=== PATIENT | female | born 1950 | race African-American/Black ===

== ENCOUNTER 2018-07-16 16:34 | Inpatient (IN) | payer MEDICARE ==
[~2018-07-16] VITALS: Ht 170.2 cm; Wt 101.2 kg
[~2018-07-16 16:34] MED LIST: ETOMIDATE 2MG/ML 10ML VIAL IV ONE
[2018-07-16] MEDS ORDERED: AMIODARONE HCL 50MG/ML 9ML VIAL IV ONE (17:15)
[2018-07-16] MEDS ORDERED: AMIODARONE HCL 900 MG in DEXT 5% WATER 482 ML IV NR (17:15)
[2018-07-16] MEDS ORDERED: AMIODARONE HCL 150 MG in DEXT 5% WATER 100 ML IV ONE (17:15)
[2018-07-16] MEDS ORDERED: SODIUM CHLORIDE 0.9% 1,000 ML IV ONE (17:19)
[2018-07-16] MEDS ORDERED: MIDAZOLAM HCL 2 MG/2 ML VIAL ONE (17:19)
[2018-07-16] MEDS ORDERED: ADENOSINE 3 MG/ML 2ML VIAL IV ONE ×2 (17:30)
[2018-07-16] MEDS ORDERED: DIGOXIN 500MCG/2ML AMP IV ONE (17:30)
[2018-07-16] MEDS ORDERED: DIGOXIN 500MCG/2ML AMP IV NR (17:30)
[2018-07-16 17:32] LABS: BG BASE EXCESS -6.7 mmol/L (-2.0-2.0); BG CARBOXYHEMOGLOBIN 0.3 % (0.5-1.5); BG DEOXYHEMOGLOBIN 0.4 % (0.0-5.0); BG FRACTION INSPIRED OXYGEN 100; BG HCO3 ACT 16.1 mmol/L (22.0-26.0); BG METHEMOGLOBIN 0.4 % (0.0-1.5); BG OXYGEN SATURATION 99.6 % (92.0-98.5); BG OXYHEMOGLOBIN 98.9 % (94.0-97.0); BG PCO2 24.6 mmHg (35.0-45.0); BG PH 7.433 (7.350-7.450); BG PO2 589.3 mmHg (75.0-100.0); BG SAMPLE SITE RIGHT BRACHIAL; BG TOTAL HEMOGLOBIN 11.2 g/dL (12.0-18.0); BG VENT MODE MASK - NRB
[2018-07-16 17:37] LABS: HEMATOCRIT. 35.9 % (36.0-48.0); HEMOGLOBIN. 11.8 g/dL (12.0-16.0); MEAN CORPUSCULAR VOLUME 82.4 fL (81.0-99.0); MEAN PLATELET VOLUME 12.7 fl (7.4-10.4); PLATELET 150 x1000/uL (130-400); RED BLOOD CELL COUNT 4.36 mill/uL (4.2-5.4); RED CELL DISTRIBUTION WIDTH 15.1 % (11.6-14.6)
[2018-07-16 17:45] LABS: CHLORIDE 88 mEq/L (98-107)
[2018-07-16 17:48] LABS: PARTIAL THROMBOPLASTIN TIME 33.9 sec (23.4-31.0); PROTHROMBIN TIME 10.1 sec (9.1-11.1)
[2018-07-16 18:09] LABS: PLATELET ESTIMATE NORMAL
[2018-07-16 21:44] VITALS: BP 120/96
[2018-07-16 22:00] VITALS: BP 120/96
[2018-07-16] MEDS ORDERED: ACETAMINOPHEN 325MG TABLET PO PRN (22:00)
[2018-07-16] MEDS ORDERED: ONDANSETRON HCL 4MG/2ML INJ IV PRN (22:00)
[2018-07-16] MEDS ORDERED: MAGNESIUM/ALUMINUM HYDROXIDE/SIMETHICONE 30ML UDC PO PRN (22:00)
[2018-07-16 22:01] VITALS: BP 124/62
[2018-07-16 22:30] VITALS: BP 102/59
[2018-07-16] MEDS: AMIODARONE HCL 900 MG in DEXT 5% WATER 482 ML IV PRN (22:30)
[2018-07-16] MEDS: SODIUM CHLORIDE 0.9% 1,000 ML IV SCH (23:00)
[2018-07-16 23:01] VITALS: BP 116/64
[2018-07-16 23:31] VITALS: BP 111/56
[2018-07-17] VITALS (44 sets, daily range): BP systolic 89–134; BP diastolic 43–81
[2018-07-17 05:28] LABS: CHLORIDE 103 mEq/L (98-107)
[2018-07-17 05:34] LABS: PHOSPHORUS 4.2 mg/dL (2.5-4.9)
[2018-07-17] MEDS ORDERED: DIGOXIN 500MCG/2ML AMP IV SCH (07:00)
[2018-07-17] MEDS ORDERED: MAGNESIUM 1 G PREMIX 100 ML IV SCH (07:30)
[2018-07-17] MEDS ORDERED: CEFTRIAXONE 1 G PREMIX 50 ML IV SCH (07:30)
[2018-07-17] MEDS ORDERED: IPRATROPIUM BROMIDE (0.02%) 0.5MG/2.5ML NEB HHN PRN (08:45)
[2018-07-17] MEDS: SODIUM CHLORIDE 0.9% 1,000 ML IV SCH ×3 (09:00→19:00)
[2018-07-17] MEDS ORDERED: KCL 20MEQ/100ML PREMIX 100 ML IV SCH (09:00)
[2018-07-17] MEDS ORDERED: PIPERACILLIN/TAZOBACTAM 2.25 G in DEXTROSE 5% WATER 50 ML IV SCH ×2 (09:00→10:00)
[2018-07-17] MEDS ORDERED: VANCOMYCIN 1,250 MG in DEXT 5% WATER 250 ML IV SCH (10:00)
[2018-07-17] MEDS: FAMOTIDINE 20MG/2ML VIAL IV SCH ×2 (10:04→10:14)
[2018-07-17] MEDS: ENOXAPARIN 80MG/0.8ML SYR SUBCUT SCH (10:06)
[2018-07-17 11:00] LABS: T4 FREE 1.12 ng/dL (0.76-1.46)
[2018-07-17 11:33] LABS: HEMATOCRIT. 30.9 % (36.0-48.0); HEMOGLOBIN. 10.1 g/dL (12.0-16.0); MEAN CORPUSCULAR HEMOGLOBIN 27.5 pg (28.0-32.0); MEAN CORPUSCULAR VOLUME 84.3 fL (81.0-99.0); MEAN PLATELET VOLUME 11.6 fl (7.4-10.4); PLATELET 107 x1000/uL (130-400); RED BLOOD CELL COUNT 3.67 mill/uL (4.2-5.4); RED CELL DISTRIBUTION WIDTH 15.6 % (11.6-14.6)
[2018-07-17 13:10] LABS: ATYPICAL LYMPHOCYTES 1; NUCLEATED RED BLOOD CELLS 3 /100 WBC
[2018-07-17 13:11] LABS: PLATELET ESTIMATE SLIGHTLY DECREASED
[2018-07-17] MEDS: AMIODARONE HCL 900 MG in DEXT 5% WATER 482 ML IV PRN (13:46)
[2018-07-17] MEDS ORDERED: METRONIDAZOLE 500MG TABLET PO SCH (14:00)
[2018-07-17] MEDS: METRONIDAZOLE 500MG TABLET PO SCH (17:09)
[2018-07-18] VITALS (78 sets, daily range): BP systolic 79–136; BP diastolic 36–105
[2018-07-18] MEDS: SODIUM CHLORIDE 0.9% 1,000 ML IV SCH ×2 (05:00→14:27)
[2018-07-18] MEDS: METRONIDAZOLE 500MG TABLET PO SCH ×2 (05:44→17:14)
[2018-07-18 07:23] LABS: HEMATOCRIT. 26.9 % (36.0-48.0); HEMOGLOBIN. 8.9 g/dL (12.0-16.0); MEAN CORPUSCULAR HEMOGLOBIN 27.4 pg (28.0-32.0); MEAN CORPUSCULAR VOLUME 82.7 fL (81.0-99.0); MEAN PLATELET VOLUME 11.7 fl (7.4-10.4); PLATELET 127 x1000/uL (130-400); RED BLOOD CELL COUNT 3.25 mill/uL (4.2-5.4); RED CELL DISTRIBUTION WIDTH 15.5 % (11.6-14.6)
[2018-07-18 07:27] LABS: CHLORIDE 109 mEq/L (98-107)
[2018-07-18] MEDS ORDERED: DIGOXIN 500MCG/2ML AMP IV NR (07:30)
[2018-07-18 07:33] LABS: PHOSPHORUS 2.6 mg/dL (2.5-4.9)
[2018-07-18 08:49] LABS: PLATELET ESTIMATE SLIGHTLY DECREASED
[2018-07-18] MEDS ORDERED: POTASSIUM CHLORIDE 20MEQ TABLET SR PO SCH (09:00)
[2018-07-18] MEDS ORDERED: ALBUMIN HUMAN 25GM/100ML (25%) IV SCH (09:30)
[2018-07-18] MEDS: FAMOTIDINE 20MG/2ML VIAL IV SCH (09:39)
[2018-07-18] MEDS: ENOXAPARIN 80MG/0.8ML SYR SUBCUT SCH (09:39)
[2018-07-18] MEDS: AMIODARONE HCL 200 MG TABLET PO SCH (14:43)
[2018-07-19] VITALS (55 sets, daily range): BP systolic 91–147; BP diastolic 40–105
[2018-07-19] MEDS: SODIUM CHLORIDE 0.9% 1,000 ML IV SCH ×2 (00:34→08:31)
[2018-07-19 05:45] LABS: HEMATOCRIT. 25.4 % (36.0-48.0); HEMOGLOBIN. 8.3 g/dL (12.0-16.0); MEAN CORPUSCULAR HEMOGLOBIN 27.1 pg (28.0-32.0); MEAN CORPUSCULAR VOLUME 83.1 fL (81.0-99.0); MEAN PLATELET VOLUME 11.4 fl (7.4-10.4); PLATELET 141 x1000/uL (130-400); RED BLOOD CELL COUNT 3.06 mill/uL (4.2-5.4); RED CELL DISTRIBUTION WIDTH 15.4 % (11.6-14.6)
[2018-07-19 06:14] LABS: PHOSPHORUS 2.5 mg/dL (2.5-4.9)
[2018-07-19] MEDS: METRONIDAZOLE 500MG TABLET PO SCH ×2 (06:14→18:22)
[2018-07-19 06:53] LABS: PLATELET ESTIMATE NORMAL
[2018-07-19] MEDS: AMIODARONE HCL 200 MG TABLET PO SCH (08:30)
[2018-07-19] MEDS: FAMOTIDINE 20MG/2ML VIAL IV SCH (08:30)
[2018-07-19] MEDS: ENOXAPARIN 80MG/0.8ML SYR SUBCUT SCH (08:30)
[2018-07-19] MEDS ORDERED: DIGOXIN 500MCG/2ML AMP IV ONE (09:45)
[2018-07-19] MEDS: LACTOBACILLUS GG CAPSULE PO SCH (12:44)
[2018-07-20] VITALS (12 sets, daily range): BP systolic 116–146; BP diastolic 64–99
[2018-07-20] MEDS: SODIUM CHLORIDE 0.9% 1,000 ML IV SCH ×3 (00:35→18:37)
[2018-07-20 07:46] LABS: HEMATOCRIT. 28.6 % (36.0-48.0); HEMOGLOBIN. 9.2 g/dL (12.0-16.0); MEAN CORPUSCULAR HEMOGLOBIN 27.4 pg (28.0-32.0); MEAN CORPUSCULAR VOLUME 85.5 fL (81.0-99.0); MEAN PLATELET VOLUME 11.7 fl (7.4-10.4); PLATELET 161 x1000/uL (130-400); RED BLOOD CELL COUNT 3.35 mill/uL (4.2-5.4); RED CELL DISTRIBUTION WIDTH 16.1 % (11.6-14.6)
[2018-07-20] MEDS: LACTOBACILLUS GG CAPSULE PO SCH (09:08)
[2018-07-20] MEDS: METRONIDAZOLE 500MG TABLET PO SCH ×2 (09:08→17:18)
[2018-07-20] MEDS: AMIODARONE HCL 200 MG TABLET PO SCH (09:08)
[2018-07-20] MEDS: ENOXAPARIN 80MG/0.8ML SYR SUBCUT SCH (09:09)
[2018-07-20] MEDS: CEFTRIAXONE 1 G PREMIX 50 ML IV SCH (09:09)
[2018-07-20] MEDS: FAMOTIDINE 20MG/2ML VIAL IV SCH (09:09)
[2018-07-20 11:06] LABS: PLATELET ESTIMATE NORMAL
[2018-07-21] VITALS (12 sets, daily range): BP systolic 139–159; BP diastolic 35–92
[2018-07-21 06:44] LABS: HEMATOCRIT. 27.4 % (36.0-48.0); HEMOGLOBIN. 8.9 g/dL (12.0-16.0); MEAN CORPUSCULAR HEMOGLOBIN 27.1 pg (28.0-32.0); MEAN CORPUSCULAR VOLUME 83.9 fL (81.0-99.0); MEAN PLATELET VOLUME 10.6 fl (7.4-10.4); PLATELET 173 x1000/uL (130-400); RED BLOOD CELL COUNT 3.27 mill/uL (4.2-5.4); RED CELL DISTRIBUTION WIDTH 15.5 % (11.6-14.6)
[2018-07-21] MEDS: METRONIDAZOLE 500MG TABLET PO SCH ×2 (06:51→17:26)
[2018-07-21 08:31] LABS: NUCLEATED RED BLOOD CELLS 1 /100 WBC
[2018-07-21 08:33] LABS: PLATELET ESTIMATE NORMAL
[2018-07-21] MEDS: LACTOBACILLUS GG CAPSULE PO SCH (09:01)
[2018-07-21] MEDS: FAMOTIDINE 20MG/2ML VIAL IV SCH (09:01)
[2018-07-21] MEDS: AMIODARONE HCL 200 MG TABLET PO SCH (09:01)
[2018-07-21] MEDS: ENOXAPARIN 80MG/0.8ML SYR SUBCUT SCH ×2 (09:02→21:10)
[2018-07-21] MEDS: CEFTRIAXONE 1 G PREMIX 50 ML IV SCH (09:02)
[2018-07-21] MEDS: SODIUM CHLORIDE 0.9% 1,000 ML IV SCH (12:27)
[2018-07-21] MEDS: SODIUM CHLORIDE 0.45% 1,000 ML IV SCH (13:35)
[2018-07-22] VITALS (13 sets, daily range): BP systolic 128–164; BP diastolic 65–109
[2018-07-22] MEDS: SODIUM CHLORIDE 0.45% 1,000 ML IV SCH (06:11)
[2018-07-22] MEDS: METRONIDAZOLE 500MG TABLET PO SCH ×2 (06:12→18:14)
[2018-07-22 06:47] LABS: HEMATOCRIT. 25.8 % (36.0-48.0); HEMOGLOBIN. 8.3 g/dL (12.0-16.0); MEAN CORPUSCULAR HEMOGLOBIN 26.9 pg (28.0-32.0); MEAN CORPUSCULAR VOLUME 83.7 fL (81.0-99.0); MEAN PLATELET VOLUME 10.2 fl (7.4-10.4); PLATELET 211 x1000/uL (130-400); RED BLOOD CELL COUNT 3.08 mill/uL (4.2-5.4); RED CELL DISTRIBUTION WIDTH 15.7 % (11.6-14.6)
[2018-07-22] MEDS: AMIODARONE HCL 200 MG TABLET PO SCH (08:15)
[2018-07-22] MEDS: LACTOBACILLUS GG CAPSULE PO SCH (08:15)
[2018-07-22] MEDS: FAMOTIDINE 20MG/2ML VIAL IV SCH (08:16)
[2018-07-22] MEDS: CEFTRIAXONE 1 G PREMIX 50 ML IV SCH (08:16)
[2018-07-22] MEDS: ENOXAPARIN 80MG/0.8ML SYR SUBCUT SCH ×2 (08:17→21:21)
[2018-07-22 17:26] LABS: PLATELET ESTIMATE NORMAL
[2018-07-23] VITALS (10 sets, daily range): BP systolic 132–182; BP diastolic 47–99
[2018-07-23] MEDS: METRONIDAZOLE 500MG TABLET PO SCH ×2 (06:17→18:12)
[2018-07-23 06:45] LABS: HEMATOCRIT. 25.1 % (36.0-48.0); HEMOGLOBIN. 8.1 g/dL (12.0-16.0); MEAN CORPUSCULAR HEMOGLOBIN 27.1 pg (28.0-32.0); MEAN CORPUSCULAR VOLUME 83.9 fL (81.0-99.0); MEAN PLATELET VOLUME 9.9 fl (7.4-10.4); PLATELET 212 x1000/uL (130-400); RED BLOOD CELL COUNT 2.99 mill/uL (4.2-5.4); RED CELL DISTRIBUTION WIDTH 15.8 % (11.6-14.6)
[2018-07-23 06:54] LABS: PHOSPHORUS 4.1 mg/dL (2.5-4.9)
[2018-07-23] MEDS ORDERED: DEXTROSE 5% WATER 1,000 ML IV SCH (08:45)
[2018-07-23] MEDS ORDERED: AMLODIPINE 5MG TABLET PO SCH (09:00)
[2018-07-23] MEDS: ENOXAPARIN 80MG/0.8ML SYR SUBCUT SCH (09:00)
[2018-07-23] MEDS: FAMOTIDINE 20MG/2ML VIAL IV SCH (09:12)
[2018-07-23] MEDS: AMIODARONE HCL 200 MG TABLET PO SCH (09:12)
[2018-07-23] MEDS: LACTOBACILLUS GG CAPSULE PO SCH (09:13)
[2018-07-23] MEDS ORDERED: MAGNESIUM 2 G PREMIX 50 ML IV NR (10:00)
[2018-07-23] MEDS: CEFTRIAXONE 1 G PREMIX 50 ML IV SCH (12:00)
[2018-07-23 15:29] LABS: NUCLEATED RED BLOOD CELLS 1 /100 WBC; PLATELET ESTIMATE NORMAL
[2018-07-23] MEDS ORDERED: DIGOXIN 500MCG/2ML AMP IV NR (15:45)
[2018-07-23] MEDS: DILTIAZEM HCL 90MG TABLET PO SCH (18:12)
[2018-07-23] MEDS: APIXABAN 5 MG TABLET PO SCH (18:12)
[2018-07-23] MEDS ORDERED: FAMOTIDINE 20MG TABLET PO SCH (21:00)
[2018-07-23] MEDS ORDERED: DILTIAZEM HCL 60MG TABLET PO SCH (22:00)
[2018-07-23] MEDS ORDERED: DIPHENHYDRAMINE 25MG CAPSULE PO PRN (22:00)
[2018-07-23] MEDS ORDERED: DIPHENHYDRAMINE 50MG CAPSULE PO PRN (22:30)
[2018-07-24] VITALS (7 sets, daily range): BP systolic 127–155; BP diastolic 60–95
[2018-07-24] MEDS: DILTIAZEM HCL 90MG TABLET PO SCH ×3 (00:21→13:42)
[2018-07-24] MEDS: METRONIDAZOLE 500MG TABLET PO SCH (06:24)
[2018-07-24] MEDS: APIXABAN 5 MG TABLET PO SCH (06:24)
[2018-07-24 06:45] LABS: BASOPHILS % 0.1 % (0.0-2.0); HEMATOCRIT. 24.6 % (36.0-48.0); LYMPHOCYTES % 11.1 % (20.0-50.0); MEAN CORPUSCULAR HEMOGLOBIN 27.1 pg (28.0-32.0); MEAN CORPUSCULAR VOLUME 83.6 fL (81.0-99.0); MEAN PLATELET VOLUME 9.7 fl (7.4-10.4); MONOCYTES % 4.6 % (2.0-8.0); NEUTROPHILS % 84.2 % (40.0-76.0); PLATELET 220 x1000/uL (130-400); RED BLOOD CELL COUNT 2.94 mill/uL (4.2-5.4); RED CELL DISTRIBUTION WIDTH 15.7 % (11.6-14.6)
[2018-07-24 09:38] LABS: PHOSPHORUS 3.9 mg/dL (2.5-4.9)
[2018-07-24] MEDS: AMIODARONE HCL 200 MG TABLET PO SCH (09:58)
[2018-07-24] MEDS: LACTOBACILLUS GG CAPSULE PO SCH (09:58)
[2018-07-24] MEDS ORDERED: SIMV10TA6 PO (22:30)
[2018-07-24] MEDS ORDERED: LISI-604 PO (22:30)
[2018-07-24] MEDS ORDERED: METO-539 PO (22:30)
[2018-07-24] MEDS ORDERED: HYDR-4135 PO (22:30)
[2018-07-24] MEDS ORDERED: HYDR25TA PO (22:30)
== END 2018-07-24 17:30 | DRG 871 ==
LOC: ER 16:34 → EDBEDREQ 17:08 → MICUSO 18:22 → EDBEDREQ 18:26 → ENRESERV 19:31 → 3WST 07-19 17:22
PROVIDERS: ADMIT Internal Medicine; ATTEND Internal Medicine
PROC: 5A2204Z Restoration of Cardiac Rhythm, Single (ICD-10-PCS; principal; 2018-07-17)
DX: A41.9 Sepsis, unspecified organism (principal); E43 Unspecified severe protein-calorie malnutrition; R65.21 Severe sepsis with septic shock; J96.00 Acute respiratory failure, unspecified whether with hypoxia or hypercapnia; D61.810 Antineoplastic chemotherapy induced pancytopenia; N17.9 Acute kidney failure, unspecified; D68.59 Other primary thrombophilia; E87.1 Hypo-osmolality and hyponatremia; E87.4 Mixed disorder of acid-base balance; G62.81 Critical illness polyneuropathy; I47.1 Supraventricular tachycardia; I48.1 Persistent atrial fibrillation; J98.11 Atelectasis; N39.0 Urinary tract infection, site not specified; N12 Tubulo-interstitial nephritis, not specified as acute or chronic; E87.0 Hyperosmolality and hypernatremia; N18.9 Chronic kidney disease, unspecified; E05.90 Thyrotoxicosis, unspecified without thyrotoxic crisis or storm; E11.22 Type 2 diabetes mellitus with diabetic chronic kidney disease; E66.9 Obesity, unspecified; E78.00 Pure hypercholesterolemia, unspecified; E78.5 Hyperlipidemia, unspecified; E86.0 Dehydration; E86.1 Hypovolemia; I12.9 Hypertensive chronic kidney disease with stage 1 through stage 4 chronic kidney disease, or unspecified chronic kidney disease; E87.6 Hypokalemia; I48.0 Paroxysmal atrial fibrillation; K57.90 Diverticulosis of intestine, part unspecified, without perforation or abscess without bleeding; C50.911 Malignant neoplasm of unspecified site of right female breast; T45.1X5A Adverse effect of antineoplastic and immunosuppressive drugs, initial encounter; L89.159 Pressure ulcer of sacral region, unspecified stage; R26.9 Unspecified abnormalities of gait and mobility; K80.20 Calculus of gallbladder without cholecystitis without obstruction; R74.0 Nonspecific elevation of levels of transaminase and lactic acid dehydrogenase [LDH]; B96.20 Unspecified Escherichia coli [E. coli] as the cause of diseases classified elsewhere; M10.9 Gout, unspecified; Z82.49 Family history of ischemic heart disease and other diseases of the circulatory system; Z85.3 Personal history of malignant neoplasm of breast; Z90.11 Acquired absence of right breast and nipple; Z88.1 Allergy status to other antibiotic agents; Z68.34 Body mass index [BMI] 34.0-34.9, adult; Y92.89 Other specified places as the place of occurrence of the external cause
CPT/HCPCS: 36415; 36600; 71045; 74176; 78580; 80048; 80162; 82375; 82805; 83605; 83735; 83880; 84100; 84134; 84145; 84439; 84443; 84484; 84550; 86850; 86900; 87015; 87045; 87077; 87186; 87427; 87449; 87493; 87804; 93005; 93306; 96365; 97116; 97163; 97166; 97530; 99152; 99291; A6261; J0153; J0282; J0696; J1160; J1650; J2250; J2405; J2543; J3370; J3475; J3480; J3490; J7030; J7060; J7070; P9047; Q0163

== ENCOUNTER 2018-07-24 17:30 | Inpatient (IN) | payer MEDICARE ==
[~2018-07-24] VITALS: Ht 170.2 cm; Wt 101.2 kg
[2018-07-24] MEDS ORDERED: MAGNESIUM/ALUMINUM HYDROXIDE/SIMETHICONE 30ML UDC PO PRN (18:45)
[2018-07-24] MEDS ORDERED: DIPHENHYDRAMINE 50MG CAPSULE PO PRN (18:45)
[2018-07-24] MEDS ORDERED: IPRATROPIUM BROMIDE (0.02%) 0.5MG/2.5ML NEB HHN PRN (18:45)
[2018-07-24] MEDS ORDERED: ACETAMINOPHEN 650MG/20.3ML UDC PO PRN (18:45)
[2018-07-24] MEDS ORDERED: ONDANSETRON HCL 4MG TABLET PO PRN (18:45)
[2018-07-24 20:00] VITALS: BP 139/83
[2018-07-24] MEDS: FAMOTIDINE 20MG TABLET PO SCH (21:04)
[2018-07-24] MEDS: APIXABAN 5 MG TABLET PO SCH (21:04)
[2018-07-24] MEDS ORDERED: HYDR-4135 PO (22:30)
[2018-07-24] MEDS ORDERED: SIMV10TA6 PO (22:30)
[2018-07-24] MEDS ORDERED: HYDR25TA PO (22:30)
[2018-07-24] MEDS ORDERED: METO-539 PO (22:30)
[2018-07-24] MEDS ORDERED: LISI-604 PO (22:30)
[2018-07-25] MEDS: DILTIAZEM HCL 90MG TABLET PO SCH ×2 (00:42→06:28)
[2018-07-25 06:53] LABS: CHLORIDE 111 mEq/L (98-107)
[2018-07-25 07:06] LABS: HEMATOCRIT. 24.4 % (36.0-48.0); HEMOGLOBIN. 8.2 g/dL (12.0-16.0); MEAN CORPUSCULAR VOLUME 83.8 fL (81.0-99.0); MEAN PLATELET VOLUME 9.4 fl (7.4-10.4); PLATELET 228 x1000/uL (130-400); RED BLOOD CELL COUNT 2.92 mill/uL (4.2-5.4); RED CELL DISTRIBUTION WIDTH 15.7 % (11.6-14.6)
[2018-07-25 08:00] VITALS: BP 137/77
[2018-07-25] MEDS: APIXABAN 5 MG TABLET PO SCH ×2 (08:25→21:11)
[2018-07-25] MEDS: AMIODARONE HCL 200 MG TABLET PO SCH (08:25)
[2018-07-25] MEDS: LACTOBACILLUS GG CAPSULE PO SCH (08:25)
[2018-07-25] MEDS ORDERED: POTASSIUM CHLORIDE 20MEQ TABLET SR PO NR (09:30)
[2018-07-25] MEDS: DILTIAZEM HCL 180MG CAPSULE CD 24HR PO SCH (10:18)
[2018-07-25 10:59] LABS: NUCLEATED RED BLOOD CELLS 2 /100 WBC; PLATELET ESTIMATE NORMAL
[2018-07-25 20:12] VITALS: BP 154/75
[2018-07-25] MEDS: FAMOTIDINE 20MG TABLET PO SCH (21:11)
[2018-07-25 23:20] LABS: CLARITY URINE CLEAR (CLEAR); COLOR URINE YELLOW (YELLOW); KETONES URINE NEGATIVE (NEGATIVE); LEUKOCYTE ESTERASE URINE NEGATIVE (NEGATIVE); NITRITE URINE NEGATIVE (NEGATIVE); OCCULT BLOOD URINE NEGATIVE (NEGATIVE); PROTEIN URINE 1+ (NEGATIVE); SPECIFIC GRAVITY URINE 1.011 (1.005-1.030); UROBILINOGEN URINE 0.2 E.U./dL (0.2-1.0)
[2018-07-26 07:20] LABS: BASOPHILS % 0.2 % (0.0-2.0); HEMATOCRIT. 25.3 % (36.0-48.0); HEMOGLOBIN. 8.4 g/dL (12.0-16.0); LYMPHOCYTES % 14.3 % (20.0-50.0); MEAN CORPUSCULAR HEMOGLOBIN 27.9 pg (28.0-32.0); MONOCYTES % 6.3 % (2.0-8.0); NEUTROPHILS % 79.2 % (40.0-76.0); PLATELET 245 x1000/uL (130-400); RED BLOOD CELL COUNT 3.02 mill/uL (4.2-5.4)
[2018-07-26 07:31] LABS: CHLORIDE 109 mEq/L (98-107)
[2018-07-26 07:46] LABS: TOTAL IRON BINDING CAPACITY 171 ug/dL (250-450)
[2018-07-26 07:47] LABS: PHOSPHORUS 3.1 mg/dL (2.5-4.9)
[2018-07-26 07:53] LABS: FOLIC ACID (FOLATE) SERUM 16.1 ng/mL (>5.38)
[2018-07-26 08:00] VITALS: BP 169/69
[2018-07-26] MEDS: AMIODARONE HCL 200 MG TABLET PO SCH (08:57)
[2018-07-26] MEDS: APIXABAN 5 MG TABLET PO SCH ×2 (08:57→21:24)
[2018-07-26] MEDS: DILTIAZEM HCL 180MG CAPSULE CD 24HR PO SCH (08:57)
[2018-07-26] MEDS: LACTOBACILLUS GG CAPSULE PO SCH (08:57)
[2018-07-26] MEDS ORDERED: MAGNESIUM 2 G PREMIX 50 ML IV NR (11:30)
[2018-07-26] MEDS: LOSARTAN POTASSIUM 50 MG TABLET PO SCH (11:54)
[2018-07-26 20:00] VITALS: BP 154/77
[2018-07-26] MEDS: FAMOTIDINE 20MG TABLET PO SCH (21:24)
[2018-07-27 08:13] VITALS: BP 134/89
[2018-07-27] MEDS: LACTOBACILLUS GG CAPSULE PO SCH (09:18)
[2018-07-27] MEDS: LOSARTAN POTASSIUM 50 MG TABLET PO SCH (09:18)
[2018-07-27] MEDS: APIXABAN 5 MG TABLET PO SCH ×2 (09:18→20:32)
[2018-07-27] MEDS: AMIODARONE HCL 200 MG TABLET PO SCH (09:19)
[2018-07-27] MEDS: DILTIAZEM HCL 180MG CAPSULE CD 24HR PO SCH (09:19)
[2018-07-27] MEDS ORDERED: MAGNESIUM 2 G PREMIX 50 ML IV NR (16:30)
[2018-07-27 20:00] VITALS: BP 143/81
[2018-07-27] MEDS: FAMOTIDINE 20MG TABLET PO SCH (20:32)
[2018-07-28 07:27] LABS: HEMATOCRIT. 28.2 % (36.0-48.0); HEMOGLOBIN. 9.3 g/dL (12.0-16.0); MEAN CORPUSCULAR HEMOGLOBIN 27.5 pg (28.0-32.0); MEAN CORPUSCULAR VOLUME 83.4 fL (81.0-99.0); MEAN PLATELET VOLUME 9.1 fl (7.4-10.4); PLATELET 241 x1000/uL (130-400); RED BLOOD CELL COUNT 3.39 mill/uL (4.2-5.4)
[2018-07-28 07:46] LABS: PHOSPHORUS 3.4 mg/dL (2.5-4.9)
[2018-07-28 08:20] VITALS: BP 143/82
[2018-07-28] MEDS: AMIODARONE HCL 200 MG TABLET PO SCH (08:46)
[2018-07-28] MEDS: LOSARTAN POTASSIUM 50 MG TABLET PO SCH (08:46)
[2018-07-28] MEDS: DILTIAZEM HCL 180MG CAPSULE CD 24HR PO SCH (08:46)
[2018-07-28] MEDS: LACTOBACILLUS GG CAPSULE PO SCH (08:46)
[2018-07-28] MEDS: APIXABAN 5 MG TABLET PO SCH ×2 (08:46→22:16)
[2018-07-28] MEDS ORDERED: POTASSIUM CHLORIDE 20MEQ TABLET SR PO NR ×2 (09:00→13:00)
[2018-07-28 10:42] LABS: PLATELET ESTIMATE NORMAL
[2018-07-28 20:00] VITALS: BP 143/77
[2018-07-28] MEDS: FAMOTIDINE 20MG TABLET PO SCH (22:16)
[2018-07-29 07:11] LABS: HEMATOCRIT. 27.9 % (36.0-48.0); HEMOGLOBIN. 9.3 g/dL (12.0-16.0); MEAN CORPUSCULAR HEMOGLOBIN 27.8 pg (28.0-32.0); MEAN CORPUSCULAR VOLUME 83.3 fL (81.0-99.0); PLATELET 232 x1000/uL (130-400); RED BLOOD CELL COUNT 3.34 mill/uL (4.2-5.4); RED CELL DISTRIBUTION WIDTH 15.8 % (11.6-14.6)
[2018-07-29 07:44] LABS: PHOSPHORUS 3.6 mg/dL (2.5-4.9)
[2018-07-29 08:00] VITALS: BP 160/81
[2018-07-29] MEDS: AMIODARONE HCL 200 MG TABLET PO SCH (08:55)
[2018-07-29] MEDS: DILTIAZEM HCL 180MG CAPSULE CD 24HR PO SCH (08:55)
[2018-07-29] MEDS: LOSARTAN POTASSIUM 50 MG TABLET PO SCH (08:55)
[2018-07-29] MEDS: LACTOBACILLUS GG CAPSULE PO SCH (08:55)
[2018-07-29] MEDS: APIXABAN 5 MG TABLET PO SCH ×2 (08:56→21:38)
[2018-07-29 10:16] LABS: PLATELET ESTIMATE NORMAL
[2018-07-29 20:00] VITALS: BP 156/79
[2018-07-29] MEDS: FAMOTIDINE 20MG TABLET PO SCH (21:38)
[2018-07-29] MEDS: CARVEDILOL 3.125 MG TABLET PO SCH (21:38)
[2018-07-30] MEDS: APIXABAN 5 MG TABLET PO SCH ×2 (08:02→20:30)
[2018-07-30] MEDS: AMIODARONE HCL 200 MG TABLET PO SCH (08:03)
[2018-07-30] MEDS: CARVEDILOL 3.125 MG TABLET PO SCH (08:03)
[2018-07-30] MEDS: DILTIAZEM HCL 180MG CAPSULE CD 24HR PO SCH (08:03)
[2018-07-30] MEDS: LACTOBACILLUS GG CAPSULE PO SCH (08:03)
[2018-07-30] MEDS: LOSARTAN POTASSIUM 50 MG TABLET PO SCH (08:03)
[2018-07-30 08:18] VITALS: BP 182/81
[2018-07-30 20:00] VITALS: BP 155/80
[2018-07-30] MEDS: FAMOTIDINE 20MG TABLET PO SCH (20:30)
[2018-07-30] MEDS: CARVEDILOL 6.25 MG TABLET PO SCH (20:30)
[2018-07-31 07:23] LABS: HEMATOCRIT. 29.2 % (36.0-48.0); HEMOGLOBIN. 9.6 g/dL (12.0-16.0); MEAN CORPUSCULAR HEMOGLOBIN 27.6 pg (28.0-32.0); MEAN CORPUSCULAR VOLUME 83.8 fL (81.0-99.0); MEAN PLATELET VOLUME 8.8 fl (7.4-10.4); PLATELET 206 x1000/uL (130-400); RED BLOOD CELL COUNT 3.48 mill/uL (4.2-5.4); RED CELL DISTRIBUTION WIDTH 16.9 % (11.6-14.6)
[2018-07-31 08:22] VITALS: BP 156/81
[2018-07-31] MEDS: AMIODARONE HCL 200 MG TABLET PO SCH (08:41)
[2018-07-31] MEDS: APIXABAN 5 MG TABLET PO SCH (08:41)
[2018-07-31] MEDS: CARVEDILOL 6.25 MG TABLET PO SCH (08:42)
[2018-07-31] MEDS: LACTOBACILLUS GG CAPSULE PO SCH (08:42)
[2018-07-31] MEDS: DILTIAZEM HCL 180MG CAPSULE CD 24HR PO SCH (08:42)
[2018-07-31 09:16] LABS: PLATELET ESTIMATE NORMAL
[2018-07-31] MEDS ORDERED: HYDRALAZINE HCL 50MG TABLET PO SCH ×2 (10:00→14:00)
[2018-07-31] MEDS ORDERED: SPIRONOLACTONE 25MG TABLET PO SCH (10:00)
[2018-07-31] MEDS ORDERED: METOPROLOL TARTRATE 50MG TABLET PO SCH (10:15)
[2018-07-31] MEDS ORDERED: SPIR25TA6 MT (11:10)
[2018-07-31] MEDS ORDERED: DILT360C28 MT (11:11)
[2018-07-31] MEDS ORDERED: APIX5TAB MT (11:12)
[2018-07-31] MEDS ORDERED: AMI2 MT (11:12)
[2018-07-31 11:13] VITALS: BP 156/87
== END 2018-07-31 15:27 | disposition home health service (06) | DRG 73 ==
PROVIDERS: ADMIT Physical Medicine & Rehabilitation Spinal Cord Injury Medicine; ATTEND Internal Medicine
DX: G62.81 Critical illness polyneuropathy (principal); A41.9 Sepsis, unspecified organism; R65.21 Severe sepsis with septic shock; E46 Unspecified protein-calorie malnutrition; E87.0 Hyperosmolality and hypernatremia; I50.32 Chronic diastolic (congestive) heart failure; N17.9 Acute kidney failure, unspecified; J98.11 Atelectasis; I13.0 Hypertensive heart and chronic kidney disease with heart failure and stage 1 through stage 4 chronic kidney disease, or unspecified chronic kidney disease; D64.9 Anemia, unspecified; E66.9 Obesity, unspecified; E78.00 Pure hypercholesterolemia, unspecified; E87.6 Hypokalemia; I48.0 Paroxysmal atrial fibrillation; L89.159 Pressure ulcer of sacral region, unspecified stage; E83.42 Hypomagnesemia; N18.9 Chronic kidney disease, unspecified; I48.2 Chronic atrial fibrillation; Z85.3 Personal history of malignant neoplasm of breast; Z90.11 Acquired absence of right breast and nipple; Z68.34 Body mass index [BMI] 34.0-34.9, adult
CPT/HCPCS: 36415; 80048; 82306; 82607; 82728; 82746; 83540; 83550; 83735; 84100; 84134; 84443; 92523; 93970; 97110; 97112; 97116; 97162; 97167; 97530; 97535; A6261; G0515; J3475; J7050